=== PATIENT | male | born 1950 | race Caucasian/White ===

== ENCOUNTER 2023-03-11 15:40 | Inpatient (IN) | payer OTHER ==
[~2023-03-11] VITALS: Ht 167.6 cm; Wt 74.8 kg
[2023-03-11] MEDS ORDERED: GABAPENTIN800 MG (16:14)
[2023-03-11 17:06] LABS: HEMATOCRIT 43.5 % (39.0-48.0); HEMOGLOBIN 14.5 g/dL (13-16.00); MEAN CELL VOLUME 93.5 fL (80.0-100.00); MEAN CORPUSCULAR HEMOGLOBIN 31.2 pg (27.00-32.0); MEAN CORPUSCULAR HGB CONC 33.4 g/dl (32.0-36.0); PLATELET COUNT 198 K/uL (150-450); RED BLOOD COUNT 4.65 M/uL (4.00-6.00); RED CELL DISTRIBUTION WIDTH 14.1 % (11.5-14.5)
[2023-03-11 17:30] LABS: INR 1.05; PARTIAL THROMBOPLASTIN TIME 27.2 SECONDS (22.0-34.0)
[2023-03-11 17:40] LABS: BILIRUBIN TOTAL 0.75 mg/dL (0.3-1.2); CALCIUM 9.1 mg/dL (8.5-10.1); CREATININE SERUM 1.08 mg/dL (0.70-1.30); GFR 67.4; GLOBULINA 3.1 G/DL (2.4-3.5); POTASSIUM 4.09 mEq/L (3.5-5.1); TOTAL PROTEIN 7.1 gm/dL (6.4-8.2)
[2023-03-12 06:52] LABS: HEMATOCRIT 44.1 % (39.0-48.0); HEMOGLOBIN 15.1 g/dL (13-16.00); MEAN CELL VOLUME 93.6 fL (80.0-100.00); MEAN CORPUSCULAR HGB CONC 34.2 g/dl (32.0-36.0); PLATELET COUNT 192 K/uL (150-450); RED BLOOD COUNT 4.72 M/uL (4.00-6.00); RED CELL DISTRIBUTION WIDTH 14.2 % (11.5-14.5)
[2023-03-12 07:05] LABS: INR 1.11; PARTIAL THROMBOPLASTIN TIME 32.7 SECONDS (22.0-34.0); PH,URINE 5.5 (5.0-8.0); PROTHROMBIN TIME 11.6 SECONDS (9.0-11.5); URINE APPEARANCE Clear; URINE BILIRRUBIN Negative (NEGATIVE); URINE BLOOD Negative; URINE COLOR Yellow; URINE GLUCOSE Negative (NEGATIVE); URINE LEUKOCYTE Negative; URINE NITRATE Negative; URINE PROTEIN Negative (NEGATIVE); URINE UROBILINOGEN 0.2 E.U./dl
[2023-03-12 07:07] LABS: URINE BACTERIA 11.3 uL (0.0-1933); URINE WBC 8.1 uL (0.0-23.2)
[2023-03-12 07:15] LABS: URINE EPITHELIAL CELLS 0.9 uL (0.0-38.8); URINE RBC 0.1 uL (0.0-20.8)
[2023-03-12 07:58] LABS: ALBUMIN 3.8 gm/dL (3.4-5.0); BILIRUBIN TOTAL 1.16 mg/dL (0.3-1.2); BILIRUBIN,CONJUGATED 0.27 mg/dL (0.0-0.2); BILIRUBIN,UNCONJUGATED 0.89 mg/dL (0.0-0.6); CREATININE SERUM 0.98 mg/dL (0.70-1.30); GFR 75.4; GLOBULINA 3.3 G/DL (2.4-3.5); POTASSIUM 4.12 mEq/L (3.5-5.1); PROSTATIC SPECIFIC ANTIGEN 2.52 NG/ML (0.010-4.00); T4 FREE 1.14 NG/ML (0.76-1.46); TOTAL PROTEIN 7.1 gm/dL (6.4-8.2); TSH 1.31 uIU/mL (0.358-3.74)
[2023-03-13 10:31] LABS: INR 1.09; PARTIAL THROMBOPLASTIN TIME 30.1 SECONDS (22.0-34.0); PROTHROMBIN TIME 11.4 SECONDS (9.0-11.5)
[2023-03-15 08:09] LABS: HEMATOCRIT 42.2 % (39.0-48.0); HEMOGLOBIN 14.3 g/dL (13-16.00); MEAN CELL VOLUME 94.6 fL (80.0-100.00); MEAN CORPUSCULAR HGB CONC 33.8 g/dl (32.0-36.0); PLATELET COUNT 194 K/uL (150-450); RED BLOOD COUNT 4.47 M/uL (4.00-6.00); RED CELL DISTRIBUTION WIDTH 13.7 % (11.5-14.5)
[2023-03-15 08:54] LABS: INR 1.13; PARTIAL THROMBOPLASTIN TIME 30.9 SECONDS (22.0-34.0); PROTHROMBIN TIME 11.8 SECONDS (9.0-11.5)
[2023-03-16 09:58] LABS: INR 1.17; PARTIAL THROMBOPLASTIN TIME 30.4 SECONDS (22.0-34.0); PROTHROMBIN TIME 12.1 SECONDS (9.0-11.5)
== END 2023-03-16 18:26 | disposition home or self-care (01) | DRG 310 ==
LOC: ER 15:40 → ICU-2 21:30 → ICU 03-13 04:57 → MEDJ 03-13 14:22 → MEDI 03-16 16:22
PROVIDERS: General Practice; Internal Medicine; ADMIT Specialist; ATTEND Specialist
PROC: B24BZZZ Ultrasonography of Heart with Aorta (ICD-10-PCS; 2023-03-11)
PROC: 4A12X4Z Monitoring of Cardiac Electrical Activity, External Approach (ICD-10-PCS; principal; 2023-03-13)
DX: I48.0 Paroxysmal atrial fibrillation (principal); G47.33 Obstructive sleep apnea (adult) (pediatric); R31.0 Gross hematuria; F10.20 Alcohol dependence, uncomplicated; E78.5 Hyperlipidemia, unspecified; N18.9 Chronic kidney disease, unspecified; I34.0 Nonrheumatic mitral (valve) insufficiency; I12.9 Hypertensive chronic kidney disease with stage 1 through stage 4 chronic kidney disease, or unspecified chronic kidney disease

== ENCOUNTER 2023-04-04 16:53 | Inpatient (IN) | payer OTHER ==
[~2023-04-04] VITALS: Ht 165.1 cm; Wt 68.0 kg
[~2023-04-04 16:53] MED LIST: GABAPENTIN800 MG
[2023-04-04 18:08] LABS: URINE APPEARANCE Turbid; URINE BILIRRUBIN Negative (NEGATIVE); URINE BLOOD Large; URINE COLOR Dark Yellow; URINE GLUCOSE Negative (NEGATIVE); URINE LEUKOCYTE Small; URINE NITRATE Negative
[2023-04-04 18:13] LABS: URINE EPITHELIAL CELLS 24.5 uL (0.0-38.8); URINE WBC 41.1 uL (0.0-23.2)
[2023-04-04 18:30] LABS: HEMATOCRIT 43.4 % (39.0-48.0); HEMOGLOBIN 14.5 g/dL (13-16.00); MEAN CELL VOLUME 91.5 fL (80.0-100.00); MEAN CORPUSCULAR HEMOGLOBIN 30.6 pg (27.00-32.0); MEAN CORPUSCULAR HGB CONC 33.5 g/dl (32.0-36.0); PLATELET COUNT 241 K/uL (150-450); RED BLOOD COUNT 4.75 M/uL (4.00-6.00); RED CELL DISTRIBUTION WIDTH 13.8 % (11.5-14.5)
[2023-04-04 18:59] LABS: ALBUMIN 3.9 gm/dL (3.4-5.0); BILIRUBIN TOTAL 0.52 mg/dL (0.3-1.2); CALCIUM 9.4 mg/dL (8.5-10.1); CREATININE SERUM 1.29 mg/dL (0.70-1.30); GFR 54.9; GLOBULINA 4.1 G/DL (2.4-3.5); POTASSIUM 4.34 mEq/L (3.5-5.1)
[2023-04-04 19:01] LABS: URINE PROTEIN 100 (NEGATIVE)
[2023-04-04 19:41] LABS: PARTIAL THROMBOPLASTIN TIME 94.8 SECONDS (22.0-34.0); PROTHROMBIN TIME > 90.0 SECONDS (9.0-11.5)
[2023-04-05 06:10] LABS: HEMATOCRIT 40.2 % (39.0-48.0); HEMOGLOBIN 13.5 g/dL (13-16.00); MEAN CELL VOLUME 92.8 fL (80.0-100.00); MEAN CORPUSCULAR HEMOGLOBIN 31.1 pg (27.00-32.0); MEAN CORPUSCULAR HGB CONC 33.5 g/dl (32.0-36.0); PLATELET COUNT 208 K/uL (150-450); RED BLOOD COUNT 4.33 M/uL (4.00-6.00); RED CELL DISTRIBUTION WIDTH 13.6 % (11.5-14.5)
[2023-04-05 06:22] LABS: ERYTHROCYTE SEDIMENTATION RATE 23 mm/hr
[2023-04-05 06:51] LABS: INR 1.76
[2023-04-05 06:59] LABS: PROTHROMBIN TIME 17.7 SECONDS (9.0-11.5)
[2023-04-05 07:08] LABS: ALBUMIN 3.4 gm/dL (3.4-5.0); BILIRUBIN TOTAL 1.35 mg/dL (0.3-1.2); BILIRUBIN,CONJUGATED 0.33 mg/dL (0.0-0.2); BILIRUBIN,UNCONJUGATED 1.02 mg/dL (0.0-0.6); CALCIUM 8.4 mg/dL (8.5-10.1); CHOL HDL RATIO 2.6 (0-5.0); CREATININE SERUM 1.06 mg/dL (0.70-1.30); GFR 68.87; POTASSIUM 3.76 mEq/L (3.5-5.1); TOTAL PROTEIN 6.4 gm/dL (6.4-8.2)
[2023-04-05 07:18] LABS: C-REACTIVE PROTEIN 2.26 MG/DL (0.00-0.29)
[2023-04-05 08:03] LABS: URINE APPEARANCE Clear; URINE BACTERIA 8.8 uL (0.0-1933); URINE BILIRRUBIN Negative (NEGATIVE); URINE BLOOD Moderate; URINE COLOR Yellow; URINE EPITHELIAL CELLS 2.7 uL (0.0-38.8); URINE GLUCOSE Negative (NEGATIVE); URINE LEUKOCYTE Trace; URINE NITRATE Negative; URINE PROTEIN Negative (NEGATIVE); URINE RBC 177.3 uL (0.0-20.8); URINE UROBILINOGEN 0.2 E.U./dl; URINE WBC 21.3 uL (0.0-23.2)
[2023-04-05 21:01] LABS: INR 1.35; PARTIAL THROMBOPLASTIN TIME 34.5 SECONDS (22.0-34.0); PROTHROMBIN TIME 13.9 SECONDS (9.0-11.5)
[2023-04-06 06:29] LABS: HEMATOCRIT 36.8 % (39.0-48.0); HEMOGLOBIN 12.7 g/dL (13-16.00); MEAN CELL VOLUME 90.4 fL (80.0-100.00); MEAN CORPUSCULAR HEMOGLOBIN 31.1 pg (27.00-32.0); MEAN CORPUSCULAR HGB CONC 34.4 g/dl (32.0-36.0); PLATELET COUNT 202 K/uL (150-450); RED BLOOD COUNT 4.07 M/uL (4.00-6.00); RED CELL DISTRIBUTION WIDTH 13.6 % (11.5-14.5)
[2023-04-06 06:46] LABS: INR 1.59
[2023-04-06 07:16] LABS: PROTHROMBIN TIME 16.1 SECONDS (9.0-11.5)
[2023-04-06] MEDS ORDERED: ATORVASTATIN CA40 MG (10:30)
[2023-04-06] MEDS ORDERED: GABAPENTIN400 MG (10:30)
[2023-04-06] MEDS ORDERED: METOPROLOL SUC100 MG (10:30)
[2023-04-06] MEDS ORDERED: WARFARIN SODIUM6 MG (10:30)
[2023-04-06 12:47] LABS: ob NEGATIVE (NEGATIVE)
[2023-04-07 07:41] LABS: HEMOGLOBIN 12.4 g/dL (13-16.00); MEAN CELL VOLUME 91.5 fL (80.0-100.00); MEAN CORPUSCULAR HEMOGLOBIN 30.6 pg (27.00-32.0); MEAN CORPUSCULAR HGB CONC 33.5 g/dl (32.0-36.0); PLATELET COUNT 205 K/uL (150-450); RED BLOOD COUNT 4.05 M/uL (4.00-6.00); RED CELL DISTRIBUTION WIDTH 13.4 % (11.5-14.5)
[2023-04-07 08:12] LABS: INR 2.9
[2023-04-07 08:19] LABS: PROTHROMBIN TIME 28.1 SECONDS (9.0-11.5)
== END 2023-04-07 21:24 | disposition home or self-care (01) | DRG 918 ==
LOC: ER 16:53 → MEDI 04-05 00:30
PROVIDERS: General Practice; Internal Medicine; Internal Medicine Geriatric Medicine; ADMIT Specialist; ATTEND Specialist
PROC: 4A12X4Z Monitoring of Cardiac Electrical Activity, External Approach (ICD-10-PCS; principal; 2023-04-05)
PROC: 30233L1 Transfusion of Nonautologous Fresh Plasma into Peripheral Vein, Percutaneous Approach (ICD-10-PCS; 2023-04-05)
DX: T45.511A Poisoning by anticoagulants, accidental (unintentional), initial encounter (principal); K62.5 Hemorrhage of anus and rectum; R31.0 Gross hematuria; I10 Essential (primary) hypertension; E78.5 Hyperlipidemia, unspecified; I48.0 Paroxysmal atrial fibrillation; G47.33 Obstructive sleep apnea (adult) (pediatric); Z20.822 Contact with and (suspected) exposure to COVID-19; I05.0 Rheumatic mitral stenosis